=== PATIENT | female | born 1980 | race Caucasian/White ===

== ENCOUNTER 2021-10-08 18:51 | Inpatient (IN) | payer MEDICAID, SELFPAY ==
[2021-10-08 19:14] VITALS: BP 118/99; PULSE 112; RESP 18; TEMP 36.7; O2SAT 100; BMI 16.5
--- NOTE | 2021-10-08 19:33 | W.ED.ANXIETY ---
HPI - Anxiety General: Chief Complaint: Anxiety Stated Complaint: TOOK COUPLE EXTRA XANAX Time Seen by Provider: 10/08/21 18:59 Source: patient and police Mode of arrival: ambulatory Limitations: no limitations History of Present Illness: HPI narrative: 40-year-old female brought in by police under 96-hour hold she states she had made a suicidal statement to her family because she is feeling stressed out and said she just and will live like this anymore states she is not actively suicidal and had no specific plan. States she has been feeling stressed out because she recently moved here she did take an extra Xanax. Patient's family had her officially 96 to states that she had been making statements like she was going to shoot herself in the head was getting very concerned about her. Associated symptoms: Deny chest pain, chills, fever(s), headache(s), nausea or vomiting Review of Systems Const: Denies: fever(s), chills, body aches or change in appetite Eyes: Denies: blurry vision or eye discomfort ENMT: Denies: throat pain or dental pain Card: Denies: chest pain Resp: Denies: dyspnea GI: Denies: abdominal pain, nausea, vomiting or diarrhea : Denies: dysuria Musc: Denies: neck pain or back pain Skin/Breast: Denies: rash Neuro: Denies: headache(s) Psych: Reports: anxiety Wolfgang/Lymph: Denies: easy bruising All/Imm: Denies: urticaria Physical Exam Const: COMMON NORMALS: no acute distress, patient oriented x3 and healthy appearing HENMT: COMMON NORMALS: normocephalic and atraumatic HEAD & SCALP: normocephalic and atraumatic Eye: COMMON NORMALS: Equal, round and reactive pupils present and EOMs intact bilaterally PUPIL: Yes Equal, round and reactive pupils present Neck/C-Spine: COMMON NORMALS: full ROM and supple Chest: COMMONS NORMALS: normal inspection of the chest and normal palpation of entire chest wall Resp: COMMON NORMALS: normal respiratory effort, No retractions, No use of accessory muscles and clear to auscultation bilaterally AUSCULTATION: clear to auscultation bilaterally Cardio: COMMON NORMALS: regular rate, regular rhythm and No murmurs present (Cardio) RATE: regular rate RHYTHM: regular rhythm GI: COMMON NORMALS: Normal to inspection, nondistended, normoactive bowel sounds present, Soft to palpation, non-tender and no masses PALPATION: Yes Soft to palpation Extremity: COMMON NORMALS: normal to inspection and full ROM Neuro: COMMON NORMALS: patient oriented x3, moves all extremities and no focal motor deficits Psych: COMMON NORMALS: mental status grossly normal, Normal thought process present and cooperative MOOD & AFFECT: Yes depressed mood THOUGHT PROCESS: Normal thought process present THOUGHT CONTENT: Yes Suicidality present Skin: COMMON NORMALS: no rashes or lesions noted and no wounds GENERAL SKIN EXAM: no rashes or lesions noted Course Vital Signs: Vital signs: Vital Signs Temperature 98.1 F 10/08/21 19:14 Pulse Rate 112 H 10/08/21 19:14 Respiratory Rate 18 10/08/21 19:14 Blood Pressure 118/99 10/08/21 19:14 Pulse Oximetry 100 10/08/21 19:14 MDM - Anxiety MDM Narrative: Medical decision making narrative: Patient presents here with suicidal ideations patient is already under 96-hour hold patient evaluated by Dr. Rocha down ER feels that she does require admission we will uphold the 96-hour hold and patient admitted she has been cooperative here. Lab Data: Labs: Lab Results 10/08/21 20:01 WBC 9.7 10^3/uL 10^3/ uL (4.0-10.0) RBC 4.96 10^6/uL 10^6 /uL (4.1-5.3) Hgb 14.4 g/dL g/dL (11.5-15.3) Hct 42.4 % % (37.0-47.0) MCV 85.5 fl fl (81-99) MCH 29.0 pg pg (28.0-34.0) MCHC 34.0 g/dL g/dL (30.0-36.0) RDW 12.1 % % (12.1-15.1) Plt Count 332 10^3/cmm 10^3 /cmm (130-400) MPV 9.7 fL fL (7.4-10.4) Neut % (Auto) 69.1 % % Lymph % (Auto) 21.5 % % [place] % (Auto) 8.6 % % Eos % (Auto) 0.3 % % Baso % (Auto) 0.3 % % Neut # (Auto) 6.67 10^3/uL 10^3 /uL (1.8-7.7) Lymph # (Auto) 2.1 10^3/uL 10^3/ uL (0.8-4.8) [place] # (Auto) 0.8 10^3/uL 10^3/ uL (0.2-0.9) Eos # (Auto) 0.0 10^3/uL 10^3/ uL (0.0-0.8) Baso # (Auto) 0.0 10^3/uL 10^3/ uL (0.0-0.1) Nucleated RBC % (a uto) 0 % % Nucleated RBCs # 0.0 /100WBC /100W BC Discharge Plan Discharge Patient Disposition: Admitted As Inpatient Clinical Impression: Suicidal ideation Condition: Stable Coding Level of Care Code ED Stitching Machine Feeder Or Offbearer for Rosaline Fwd Exam Comprehensive
[2021-10-08 20:06] LABS: Basophils % 0.3 %; Eosinophils % 0.3 %; Hematocrit 42.4 % (37.0-47.0); Hemoglobin 14.4 g/dL (11.5-15.3); Lymphocytes # 2.1 10^3/uL (0.8-4.8); Lymphocytes % 21.5 %; Mean Corpuscular Volume 85.5 fl (81-99); Mean Platelet Volume 9.7 fL (7.4-10.4); Monocytes # 0.8 10^3/uL (0.2-0.9); Monocytes % 8.6 %; Neutrophils # 6.67 10^3/uL (1.8-7.7); Neutrophils % 69.1 %; Nucleated Red Blood Cells % 0 %; Platelet Count 332 10^3/cmm (130-400); Red Blood Count 4.96 10^6/uL (4.1-5.3); Red Cell Distribution Width 12.1 % (12.1-15.1); White Blood Count 9.7 10^3/uL (4.0-10.0)
[2021-10-08 20:44] LABS: Alanine Aminotransferase 9 U/L (0-33); Albumin Level 4.4 g/dL (3.5-5.2); Alkaline Phosphatase 58 IU/L (35-105); Aspartate Amino Transferase 14 U/L (0-32); Blood Urea Nitrogen 13 mg/dL (6-20); Calcium 8.3 mg/dL (8.5-10.5); Carbon Dioxide 24 mmol/L (22-29); Chloride 100 mmol/L (98-107); Globulin 2.2 g/dL (1.3-4.6); Glomerular Filtration Rate 138.1 mL/min (90-130); Glucose 105 mg/dL (65-115); Osmolality Calculated 284 mOsm/kg (285-295); Sodium 137 mmol/L (136-145); Total Bilirubin 0.4 mg/dL (0.15-1.2); Total Protein 6.6 g/dL (6.6-8.7)
[2021-10-08 20:47] LABS: Acetaminophen < 5.0 ug/mL (10-30); Alcohol Level < 10 mg/dL (0-10); Salicylate < 0.3 mg/dL (3-10)
[2021-10-08 20:51] LABS: HCG Qualitative Urine. Negative (Negative)
[2021-10-08 22:55] LABS: Amphetamines Screen Urine Positive (Negative); Barbiturates Screen Urine Negative (Negative); Benzodiazepines Screen Urine Positive (Negative); Cocaine Screen Urine Negative (Negative); Opiate Screen Urine Positive (Negative); PCP Screen Urine Negative (Negative); THC Screen Urine Positive (Negative)
[2021-10-08 23:49] VITALS: BP 118/99; PULSE 112; RESP 18; TEMP 36.7; O2SAT 100
[2021-10-09 05:43] VITALS: BP 118/99; PULSE 112; RESP 18; TEMP 36.7
--- NOTE | 2021-10-09 08:40 | PC.NURSE ---
Behaviors- Resting in bed with eyes closed at this time. Up for breakfast. Appropriate at that time. No issues noted. Returned to bed after breakfast. Staff monitoring closely.
[2021-10-09 14:00] VITALS: BP 110/64; PULSE 84; RESP 17; TEMP 36.6; O2SAT 98
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
[2021-10-09 20:51] VITALS: BP 115/74; PULSE 81; RESP 16; O2SAT 97
[2021-10-10 06:00] VITALS: BP 109/70; PULSE 64; RESP 15; TEMP 36.6; O2SAT 97
[2021-10-10 14:00] VITALS: BP 125/84; PULSE 85; RESP 17; TEMP 36.8; O2SAT 99
--- NOTE | 2021-10-10 15:21 | PC.NURSE ---
Verified patients medications through [facility] in [place] [phone]. Patient is followed by Dr. Kenroy Wilkes MD from [facility] [address] [address]. [phone]. patient is currently being followed through telehealth since [facility]. Patient is currently prescribed Adderall 20mg TID, but patient only takes all 3 doses as needed while working. 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 Currently taking Xanax, Ambien and Propranolol on an as needed basis also. Home meds have been started.
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
--- NOTE | 2021-10-10 17:50 | PC.NURSE ---
Dr ordered for patient to restart some home medications that we do not have on formulary. With patient's permission, called her father to ask him to bring her home meds in so patient can continue them during her stay. patient's father agreed to bring the medications in.
[2021-10-10 21:08] VITALS: BP 126/88; PULSE 94; RESP 17; TEMP 36.8; O2SAT 98
[2021-10-11 06:00] VITALS: BP 103/62; PULSE 69; RESP 20; TEMP 36.6; O2SAT 96; BMI 16.5
--- NOTE | 2021-10-11 10:50 | PC.NURSE ---
MEDICATION NOTE- Patient refused AM dose of Adderall.
--- NOTE | 2021-10-11 12:51 | P.NPUPN_ITS ---
Subjective NPU Subjective: Interval history: Patient presents today reportedly in a much better place. Her father did bring her medications and it does not at this point seem like there was overuse of medication. She still is in a tough situation however in figuring out the dynamics at home with their thoughts about how she has been functioning. We agreed we would work with the treatment team tomorrow to find a reasonable option for her discharge in the next 48 hours likely. Mental Status Exam MSE Comments: This is an underweight, white female, in hospital scrubs, with limited grooming, and adequate eye contact. No abnormal movements except for psychomotor agitation. More cooperative with exam in mild distress. Speech was more normal rate and volume. Mood described as a little better; affect congruent. Thought process, organized. Thought content: patient denied any suicidal or homicidal ideation, there were no delusions reported or noted, patient denied any auditory or visual hallucinations. Attention, concentration, and memory appear intact but were not formally tested. She is alert and oriented times three. Insight and judgment are limited, but improving, impulse control limited, but improving. Vitals/I&O/Wt Last Vital Signs Temp 98 F 10/11/21 06:00 Pulse 69 10/11/21 06:00 Resp 20 H 10/11/21 06:00 BP 103/62 10/11/21 06:00 Pulse Ox 96 10/11/21 06:00 Weight last 48 hrs Weight 44.906 kg Data NPU : 10/08/21 20:01 10/08/21 20:01 A&P Additional A&P Information (1) Suicidal ideation: (2) ADHD: (3) PTSD (post-traumatic stress disorder): Additional A&P Information This is a 40-year-old, white female, with attention deficit hyperactivity disorder, reported history of autism, anxiety, post-traumatic stress disorder, and concerns for addiction, who presents reporting that there is nothing wrong and she should not be kept on a 96-hour hold. RECOMMENDATION AND PLAN: 1. Continue current medication except we will review medications and make sure current medications are appropriate, and she would not benefit from mood stabi lizer. 2. Encourage individual, group, and milieu therapy. 3. Continue q-15 minute checks for safety. 4. Encourage sober living treatment after discharge, at the highest level of care, to which she is willing to commit. Involuntary Hold Information 2 96 Hour Hold: 96 Hour Involuntary Admission: Yes Attestations NPU Medical Necessity Statement*: Inpatient hospitalization is medically necessary and the clinically appropriate intervention, at this time. We will monitor medications and make changes as indicated. Likely length of stay is 1-3 days. Coding Level of Care Code Acute Director Of Sustainable Design for Rosaline Conroy
[2021-10-11 13:57] VITALS: BP 113/71; PULSE 80; RESP 18; TEMP 36.6; O2SAT 99
[2021-10-11 20:20] VITALS: BP 128/74; PULSE 68; RESP 17; TEMP 37; O2SAT 98
[2021-10-12 06:00] VITALS: BP 117/78; PULSE 80; RESP 20; TEMP 36.7; O2SAT 99
--- NOTE | 2021-10-12 13:04 | NPU.GN ---
[facility] Topic: Group Discussion/ Choices General Mood of Group: Loraine did attend and participate in group. 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 She has the optimistic personality.
[2021-10-12 14:00] VITALS: BP 132/80; PULSE 80; RESP 16; TEMP 36.7; O2SAT 99
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
[2021-10-12] MEDS: zolpidem 5 mg Tablet 10 MG PO (20:31)
--- NOTE | 2021-10-12 23:17 | PC.NURSE ---
PRN Administration: Patient c/o having trouble getting to sleep and requested PRN zolpidem PO, given as ordered.
[2021-10-13 06:00] VITALS: BP 104/67; PULSE 67; RESP 16; O2SAT 99
[2021-10-13] MEDS: ALPRAZolam 0.5 mg Tablet 0.25 MG PO (08:08)
[2021-10-13] MEDS: OLANZapine 5 mg ODT PO (08:08)
--- NOTE | 2021-10-13 12:17 | NPU.GN ---
[facility] Group Topic:Depression Ruth General Mood of Group: Loraine was in good spirits and social in group. Her hygiene was good. She gave other patients feedback of hers on depression.
[2021-10-13 14:00] VITALS: BP 106/66; PULSE 78; RESP 17; TEMP 36.8; O2SAT 99
--- NOTE | 2021-10-13 17:06 | P.NPUPN_ITS ---
Subjective NPU Subjective: Interval history: Loraine presents today continuing to have challenges with the relationship with her father and his willingness to assist her without significant strings attached. Most recently he is agreeing that she can discharge [facility]. She denies having addiction issues that would suggest that as a good use of her time moving forward. We discussed the fact that her 96-hour hold is up tomorrow and that we would need to have her sign in or discharge her by tomorrow evening. We discussed the possible options for discharge tomorrow. Mental Status Exam MSE Comments: This is an underweight, white female, in hospital scrubs, with limited grooming, and adequate eye contact. No abnormal movements except for psychomotor agitation. More cooperative with exam in mild distress. Speech was more normal rate and volume. Mood described as a little better; affect congruent. Thought process, organized. Thought content: patient denied any suicidal or homicidal ideation, there were no delusions reported or noted, patient denied any auditory or visual hallucinations. Attention, concentration, and memory appear intact but were not formally tested. She is alert and oriented times three. Insight and judgment are limited, but improving, impulse control limited, but improving. Vitals/I&O/Wt Last Vital Signs Temp 98.3 F 10/13/21 14:00 Pulse 78 10/13/21 14:00 Resp 17 10/13/21 14:00 BP 106/66 10/13/21 14:00 Pulse Ox 99 10/13/21 14:00 Data NPU : 10/08/21 20:01 10/08/21 20:01 A&P Additional A&P Information (1) Suicidal ideation: (2) ADHD: (3) PTSD (post-traumatic stress disorder): Additional A&P Information This is a 40-year-old, white female, with attention deficit hyperactivity dis order, reported history of autism, anxiety, post-traumatic stress disorder, and concerns for addiction, who presents reporting that there is nothing wrong and she should not be kept on a 96-hour hold. RECOMMENDATION AND PLAN: 1. Continue current medication except we will review medications and make sure current medications are appropriate, and she would not benefit from mood stabilizer. 2. Encourage individual, group, and milieu therapy. 3. Continue q-15 minute checks for safety. 4. Encourage sober living treatment after discharge, at the highest level of care, to which she is willing to commit. Involuntary Hold Information 96 Hour Hold: 96 Hour Involuntary Admission: Yes Attestations NPU Medical Necessity Statement*: Inpatient hospitalization is medically necessary and the clinically appropriate intervention, at this time. We will monitor medications and make changes as indicated. Likely length of stay is 1-2 days. Coding Level of Care Code Acute Meter Changes Records Clerk for Rosaline Conroy
[2021-10-13 21:07] VITALS: BP 106/66; PULSE 78; RESP 17; TEMP 36.8; O2SAT 99
[2021-10-13] MEDS: zolpidem 5 mg Tablet 10 MG PO (21:14)
--- NOTE | 2021-10-14 03:22 | PC.NURSE ---
PRN Administration: patient c/o trouble sleeping, given PRN zolpidem PO as ordered with noted effectiveness.
[2021-10-14 06:00] VITALS: BP 105/67; PULSE 84; RESP 15; TEMP 37.1; O2SAT 99
--- NOTE | 2021-10-14 12:54 | NPU.GN ---
[facility] Group Topic:Wheel of Positive thoughts versus Negative Thoughts General Mood of Group: Loraine did great today in group she participated and asked this senior underwriter if she could help fun group. She has a positive attitude and mindset today. Her hygiene was good.
[2021-10-14] MEDS: ALPRAZolam 0.5 mg Tablet 0.25 MG PO (13:40)
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
[2021-10-14 14:51] VITALS: BP 105/67; PULSE 84; RESP 15; TEMP 37.1; O2SAT 99
== END 2021-10-14 15:33 | disposition home or self-care (01) | DRG 880 ==
LOC: ER 20:16 → NP 20:48
PROVIDERS: Admitting Provider Psychiatry & Neurology Psychiatry; Emergency Provider Emergency Medicine; Visit Provider Psychiatry & Neurology Psychiatry
DX: F41.9 Anxiety disorder, unspecified (principal); R45.851 Suicidal ideations; Z63.8 Other specified problems related to primary support group; Z62.820 Parent-biological child conflict
CPT/HCPCS: 80053; 80306; 80307; 81025; 85025; 97150; 97165; 99285